=== PATIENT | female | born 1990 | race Caucasian/White ===

== ENCOUNTER 2025-02-17 17:30 | Emergency (ER) | payer OTHER, SELFPAY ==
[2025-02-17 17:31] VITALS: BP 104/83; PULSE 70; RESP 18; TEMP 35.9; O2SAT 100
--- NOTE | 2025-02-17 17:33 | ED_ITS ---
HPI - Nausea/Vomiting/Diarrhea General Chief complaint: Nausea/Vomiting/Diarrhea Stated complaint: not feeling well Time Seen by Provider: 02/17/25 17:33 Source: patient Mode of arrival: ambulatory Limitations: no limitations History of Present Illness HPI Narrative: 34-year-old female with a history of anxiety, status post cholecystectomy presents to the ED with a 2 day history of -- nausea with multiple episodes of vomiting and diarrhea. No abdominal pain. No fever. patient has had 10-15 episodes of vomiting and 4 episodes of diarrhea. -- hiccups -- tingling of tips of her fingers had cholecystectomy. No other abdominal surgeries. Normal vaginal deliveries. no other family members are sick. Patient has not eaten anything out of the ordinary. MD elicited complaint: nausea Onset (ago): day(s) ( 2 days) Description of vomiting: watery Description of diarrhea: watery Associated nausea: Yes Associated abdominal pain: No Location of pain: none Exacerbating factors: none Relieving factors: none Associated symptoms: denies other symptoms Related Data Allergies Allergy/AdvReac Type Severity Reaction Status Date / Time No Known Allergies Allergy Verified 02/17/25 17:34 Review of Systems 2 Review of Systems: All systems reviewed & are unremarkable except as noted in HPI and below Constitutional: Constitutional: Reports as per HPI, Reports no additional constitutional complaints and Reports weakness Eyes: Eyes: Reports as per HPI and Reports no additional eye complaints ENT: Reports system reviewed and no additional complaints, except as documented and Reports as per HPI Cardiovascular: Cardiovascular: Reports as per HPI and Reports no additional cardiovascular complaints Respiratory: Respiratory: Reports as per HPI and Reports no additional respiratory complaints Gastrointestinal: Gastrointestinal: Reports as per HPI, Reports no additional gastrointestinal complaints, Reports diarrhea, Reports nausea and Reports vomiting Genitourinary: Genitourinary: Reports no additional female genitourinary complaints Comments: decreased urine output Musculoskeletal: Musculoskeletal: Reports no additional musculoskeletal complaints and Reports as per HPI Integumentary/Breasts: Skin/Breast: Reports system reviewed and no additional complaints, except as docu and Reports as per HPI Neurologic: Reports system reviewed and no additional complaints, except as documented and Reports as per HPI Psychiatric: Psychiatric: Reports no additional psychiatric complaints and Reports as per HPI Endocrine: Endocrine: Reports no additional endocrine complaints and Reports as per HPI Hematologic/Lymphatic: Hematologic/Lymphatic: Reports no additional hematologic/lymphatic complaints and Reports as per HPI Allergic/Immunologic: Allergic/Immunologic: Reports no additional allergic/immunologic complaints and Reports as per HPI [facility] Past Medical History Medical History (Updated 02/17/25 @ 19:04 by Phani Gomez MD) Anxiety Exam 2 Narrative: Vitals are stable. Heart rate of 70. Afebrile. Const: General: no acute distress Orientation/consciousness: patient oriented x3 Limitations: no limitations HENMT: Head: normal to inspection Ears: external ears normal F khushboo/Nose/Sinus: Normal external nose present Face and sinus: normal facial exam Mouth: Yes Normal oral and palatal mucosa present Throat: posterior oropharynx normal Eyes: Conjunctivae: conjunctivae normal Cornea: corneas normal Pupils: E qual, round and reactive pupils present EOM: EOMs intact bilaterally D irect Ophthalmoscopy: no photophobia Neck: Neck: normal visual inspection and no lymphadenopathy Chest: Chest palpation & inspection: normal inspection of the chest Resp: Effort & Inspection: normal respiratory effort Auscultation: clear to auscultation bilaterally Cardio: Rate: regular rate Rhythm: regular rhythm GI: GI Palp: Yes Soft to palpation Auscultation: normal bowel sounds O ther: No tenderness/ rigidity /rebound : General: Yes no CVA tenderness Back/Spine/Pelvis: Back: no CVA tenderness Skin: General skin exam: normal color Rashes: no rashes Wounds: no wounds Neuro: General: patient oriented x3, moves all extremities, no meningeal signs and no focal motor deficits Speech: normal speech Extrem: General: normal to inspection and no clubbing, cyanosis or edema Psych: Mental Status: mental status grossly normal Affect: Anxious affect present Course Course Emergency Course: gastroenteritis--Patient had good response to Compazine. Blood work is unremarkable. Vital Signs Vital signs: Vital Signs Temperature 35.9 C L 02/17/25 17:31 Pulse Rate 70 02/17/25 17:31 Respiratory Rate 18 02/17/25 17:31 Blood Pressure 104/83 02/17/25 17:31 Pulse Oximetry 100 02/17/25 17:31 Oxygen Delivery Room Air 02/17/25 17:31 Temperature 36.1 C L 02/17/25 18:38 Pulse Rate 57 L 02/17/25 18:38 Respiratory Rate 18 02/17/25 18:38 Blood Pressure 108/65 02/17/25 18:38 Pulse Oximetry 98 02/17/25 18:38 Oxygen Delivery Room Air 02/17/25 18:38 MDM - Nausea/Vomiting/Diarrhea MDM Narrative Medical decision making narrative: Gastroenteritis Differential Diagnosis Differential diagnosis: Likely food poisoning Lab Data Attestation: I reviewed the patient's lab results. 02/17/25 18:24 02/17/25 18:24 Labs: Lab Results 02/17/25 Range/Units 18:24 WBC 8.0 (4.8-10.8) K/mm3 RBC 4.67 (4.20-5.40) M/mm3 Hgb 13.6 (12.0-15.0) g/dL Hct 39.7 (35.0-49.0) % MCV 85.0 (78.0-102.0) fL MCH 29.1 (27.0-31.0) pg MCHC 34.3 (32-36) g/dL RDW 12.1 (11.6-14.4) % Plt Count 324 (150-420) K/mm3 MPV 9.9 (9.2-11.8) fl Immature Gran % (Auto) 0.4 H (0.0-0.0) % Neut % (Auto) 81.1 H (50.0-70.0) % Lymph % (Auto) 15.0 L (18.0-42.0) % Becker % (Auto) 3.0 (2.0-11.0) % Eos % (Auto) 0.1 L (1.0-6.0) % Baso % (Auto) 0.4 (0.0-1.0) % Lymph # (Auto) 1.20 (1.10-4.50) K/mm3 Becker # (Auto) 0.24 (0.10-0.90) K/mm3 Eos # (Auto) 0.01 L (0.02-0.50) K/mm3 Baso # (Auto) 0.03 (0.00-0.10) K/mm3 Abs Immat Gran (auto) 0.03 H (0.00-0.00) K/mm3 Absolute Neuts (auto) 6.48 (1.70-7.20) K/mm3 Absolute Nucleated RBC 0.00 (0.00-0.00) K/mm3 Nucleated RBC % 0.0 (0-0.0) % Sodium 139 (136-145) mmol/L Potassium 4.3 (3.5-5.1) mmol/L Chloride 104 (98-108) mmol/L Carbon Dioxide 23 (21-32) mmol/L Anion Gap 12 (4-12) mmol/L BUN 14 (7-18) mg/dL Creatinine 0.74 (0.55-1.02) mg/dL Estim Creat Clear Calc 86 ml/min Estimated GFR > 60 (59 - ) Glucose 112 H (70-99) mg/dL Calculated Osmolality 289 (285-295) mOsm/kg Lactic Acid 1.8 (0.4-2.0) mmol/L Calcium 9.1 (8.5-10.1) mg/dL Total Bilirubin 0.9 (0.00-1.00) mg/dL AST 16 (15-37) U/L ALT 12 L (14-59) U/L Alkaline Phosphatase 74 (46-116) U/L Total Protein 7.7 (6.4-8.2) g/dL Albumin 4.2 (3.4-5.0) g/dL Lipase 25 (16-77) U/L Urine Color Light yellow (Yellow) Urine Appearance Clear (Clear) Urine pH 8.0 (5.0-8.0) Ur Specific Reserve 1.020 (1.010-1.020) Urine Protein Negative (Negative) Urine Glucose (UA) Negative (Negative) Urine Ketones 3+ H (Negative) Ur Blood (Man) Negative (Negative) Urine Nitrate Negative (Negative) Urine Bilirubin Negative (Negative) Urine Urobilinogen 0.2 (0.2-1.0) mg/dL Leukocyte Esterase Rfl Negative (Negative) ORALIA/UL Urine Test Negative Discharge Plan Discharge Clinical Impression: Gastroenteritis Patient Disposition: Home Condition: Stable Instructions: Antibiotic Form, Gastroenteritis (ED) Patient Language: Portuguese Prescriptions: New ondansetron HCl 4 mg tablet 4 mg PO Q8H PRN (Reason: nausea and vomiting) 4 Days Qty: 10 0RF Follow-up/Referrals: UNKNOWN,DOCTOR [Primary Care Provider] - Time of Disposition: 19:04
[2025-02-17] MEDS: LACTATED RINGERS 1,000 ML 999 ML IV CONT (17:52)
[2025-02-17] MEDS: PROCHLORPERAZINE EDISYLATE 10 MG/2 ML VIAL IV PUSH (17:52)
--- OUTSIDE RECORDS SUMMARY | 2025-02-17 17:58 | XMS_ITS | Continuity of Care Document ---
Author Name [facility] Organization [facility] Care Team Providers Care Drug Regulatory Affairs Specialist Name Role Phone [facility] Unavailable Unavailable Problems Combined list of problems from Department of Defense and Veterans Affairs facilities. It does not include entries that were removed or entered in error. Problem Status Onset Date Problem Type Date of Resolution Comments Source Anxiety Active 08/03/2024 Diagnosis [facility] Anxiety Active 08/01/2024 Diagnosis [facility] Major depression Active 08/01/2024 Diagnosis 00 [facility] Major depression Active 07/18/2024 Diagnosis 00 [facility] Anxiety Active 06/30/2024 Diagnosis [facility] Anxiety Active Condition [facility] Low back pain Active Condition [facility] Migraine with aura Active Condition [facility] Migraine with typical aura Active Condition [facility] Murmur Active Condition [facility] Tinea corporis Active Condition [facility] Immunizations Combined list of available immunizations from the Department of Defense and Veterans Affairs facilities. Immunization Series Date Given Administered By Site Reaction Lot Number CVX Code Drug Floorworker Status Comments Source tuberculin purified protein derivative 2022 CHARLIER IS Arm, left forea rm [id number] sanofi pasteur complet ed tuberculi n purified protein derivativ e 07/21/23 Given [facility] influenza, seasonal, injectable-pf 2013 CHARLIER IS 140 complet ed Result Comment: Unit: Unknown Manufactu rer: () [facility] tuberculin purified protein derivative 2013 zzLef t Arm [id number] sanofi pasteur complet ed Patient Tolerance : Negative Ambulat ory Pharmac y hepatitis B adult vaccine 2012 zzRig ht Arm [id number] [employer]oSmith[employer] ne complet ed hepatitis B adult vaccine 10/05/13 Given Ambulat ory Pharmac y hepatitis B adult vaccine 2012 zzLef t Arm [id number] 43 Gl[employer]oSmithK[employer] ne complet ed hepatitis B adult vaccine 05/03/13 Given Ambulat ory Pharmac y measles/mumps /rubella virus vaccine 2012 zzRig ht Arm [id number] [employer] complet ed measles/m umps/rube lla virus vaccine 05/03/13 Given Ambulat ory Pharmac y measles/mumps /rubella virus vaccine 2012 zzRig ht Thigh [id number] [employer] complet ed measles/m umps/rube lla virus vaccine 04/03/13 Given Ambulat ory Pharmac y hepatitis B adult vaccine 2012 zzLef t Arm [id number] 43 GlaxoSmithK[employer] ne complet ed hepatitis B adult vaccine 04/03/13 Given Ambulat ory Pharmac y tetanus, diphtheria, acellular pertu is 2012 zzLef t Arm [id number] 115 [employer] complet ed tetanus, diphtheri a, acellular pertussis 03/29/13 Given Ambulat ory Pharmac y tuberculin purified protein derivative 2012 zzLef t Arm [id number] [facility] complet ed Patient Tolerance : Negative Ambulat ory Pharmac y Results Combined list of recent chemistry, hematology and other laboratory results from Department of Defense and Veterans Affairs, ranging from 15 months to all on record, depending upon the facility. Order Name Results Value Reference Range Date Interpretation Specimen Comments Source Urinalysi s UA Protein Negative (03/08/24 8:05 AM) [facility] Leuk Esterase Negative (03/08/24 8:05 AM) 03[facility] Nitrite Negative (03/08/24 8:05 AM) 03[facility]A Urobilinog en 0.2 E.U./dL 03/08 [facility] Blood Negative (03/08/24 8:05 AM) 03/[address] [place] [address] Urinalysi s UA Spec [place] 1.015 *NA* (03/08/24 8:05 AM) 1.005 - 1.025 03/[address] [place] [address] Urinalysi s UA Ketones Negative (03/08/24 8:05 AM) 03/[address] [place] [address] Urinalysi s UA Bili Negative (03/08/24 8:05 AM) 03/[address] [place] [address] Urinalysi s UA pH 7.0 (03/08/24 8:05 AM) 5.0 - 7.5 03/[address] [place] [address] Urinalysi s UA Clarity Clear *NA* (03/08/24 8:05 AM) 03/[address] [place] [address] Urinalysi s UA Appear Clear *NA* (03/08/24 8:05 AM) 03/[address] [place] [address] Urinalysi s UA Color Yellow *NA* (03/08/24 8:05 AM) 03/[address] [place] [address] Urinalysi s UA Glucose Negative (03/08/24 8:05 AM) 03/[address] [place] [address] Urinalysi s UA Glucose Negative (01/10/24 2:10 PM) 01/[address] [place] [address] Urinalysi s UA Clarity Clear *NA* (01/10/24 2:10 PM) 01/[address] [place] [address] Urinalysi s UA Appear Clear *NA* (01/10/24 2:10 PM) 01/[address] [place] [address] Urinalysi s UA Color Yellow *NA* (01/10/24 2:10 PM) 01/[address] [place] [address] Urinalysi s UA Protein Negative (01/10/24 2:10 PM) 01/[address] [place] [address] Urinalysi s UA Nitrite Negative (01/10/24 2:10 PM) 01/[address] [place] [address] Urinalysi s UA Urobilinog en 0.2 E.U./dL 01/[address] [place] [address] Urinalysi s UA Leuk Esterase 1+ *ABN* (01/10/24 2:10 PM) 01/[address] [place] [address] Urinalysi s UA Ketones Negative (01/10/24 2:10 PM) 01/[address] [place] [address] Urinalysi s UA Bili Negative (01/10/24 2:10 PM) 01/[address] [place] [address] Urinalysi s UA Blood 1+ *ABN* (01/10/24 2:10 PM) 01/[address] [place] [address] Urinalysi s UA Spec [place] 1.010 *NA* (01/10/24 2:10 PM) 1.005 - 1.025 01/[address] [place] [address] Urinalysi s UA pH 7.0 (01/10/24 2:10 PM) 5.0 - 7.5 01/[address] [place] [address] Urinalysi s UA Epi Squam 0-1 (01/10/24 2:10 PM) 01/[address] [place] [address] Urinalysi s UA WBC 11-20 *ABN* (01/10/24 2:10 PM) 0 - 10 01/[address] [place] [address] Urinalysi s UA Bacteria Trace (01/10/24 2:10 PM) 01/[address] [place] [address] Urinalysi s UA RBC 0-2 (01/10/24 2:10 PM) 0 - 2 01/[address] [place] [address] Chemistry Beta hCG, Serum Qual Positive 7 ( 2 3:36 PM) 08/05 N Interpretiv e Data: If test is negative and is still suspected, a fresh serum specimen should be collected after 48 hours and tested. If test is equivocal, a fresh serum specimen should be collected in 48 to 72 hours or an alternate confirmatio n method should be used. [address] [place] [address] Chemistry Creatinine Level 0.75 mg/dL 0.55 - 1.02 07/23 N Interpretiv e Data: Creatinine- IFCC IDMS Standardize d Method. [address] [place] [address] Chemistry BUN 13 mg/dL 7 - 18 07/[address] [place] [address] Chemistry Alk Phos 67 U/L 46 - 116 07/23 N Interpretiv e Data: Interpretat ions: Alkaline Posphatase- IFCC Traceable Method. [address] [place] [address] Chemistry ALT 18 U/L 12 - 78 07/23 N Interpretiv e Data: Interpretat ions: Alanine Aminotransf erase-IFCC Traceable Method Sulfasalazi ne Interferenc e: Test result may be falseley depressed for patients on sulfasalazi ne. Specimen should be collected prior to sulfasalazi ne administrat ion. [address] [place] [address] Chemistry AST 16 U/L 15 - 37 07/23 N Interpretiv e Data: Interpretat ions: Sulfasalazi ne Interferenc e: Test result may be falseley depressed for patients on sulfasalazi ne. Specimen should be collected prior to sulfasalazi ne administrat ion. [address] [place] [address] Chemistry Bilirubin Total 0.5 mg/dL 0.6 - 1.0 07/23 L Interpretiv e Data: Eltrombopag Interferenc e: Use of this assay is not recommended for patients undergoing treatment with eltrombopag , due to the potential for falsely elevated results. [address] [place] [address] Chemistry Potassium Lvl 4.4 mmol/L 3.5 - 5.0 07/[address] [place] [address] Chemistry Sodium 140 mmol/L 135 - 145 07/[address] [place] [address] Chemistry Glucose Lvl 82 mg/dL 70 - 110 07/23 N Interpretiv e Data: Sulfasalazi ne/Sulfapyr idine Interferenc e: Test result may be falsely depressed for patients on sulfasalazi ne. Test result may be falsely elevated for patients on sulfapyridi ne. Specimen should be collected prior to sulfasalazi ne/sulfapyr idine administrat ion. [address] [place] [address] Chemistry BUN/Creat Ratio 17 10 - 07/[address] [place] [address] Chemistry AGAP 14 mmol/L 10 - 20 07/[address] [place] [address] Chemistry CO2 27.4 mmol/L 18.0 - 32.0 07/[address] [place] [address] Chemistry Chloride 103 mmol/L 98 - 108 07/[address] [place] [address] Chemistry Albumin 4.1 g/dL 3.4 - 5.0 07/[address] [place] [address] Chemistry Protein Total 7.7 g/dL 6.4 - 8.2 07/[address] [place] [address] Chemistry Calcium 9.5 mg/dL 8.4 - 10.9 07/[address] [place] [address] Chemistry eAvg Glucose.EP I 94 mg/dL 07/23 Result Comment: INTERPRETAT ION(S): A1c (%) mg/dL 5 97 (76-120) 6 126 (100-152) 7 154 (123-185) 8 183 (147-217) 9 212 (170-249) 10 240 (193-282) 11 269 (217-314) 12 298 (240-347) Data in parentheses are 95% Confidence Intervals (Diabetes Care Volume 31 Number 8, ADA) Panel performed by: Epidemiolog y Laboratory Service [facility] [id number] [place] [address], [place] [id number] [place] [address] Chemistry Hgb A1c.EPI 4.9 % 07/23 Result Comment: INTERPRETAT ION(S): Normal: 4.8% - 5.6% Prediabetes : 5.7% - 6.4% Diabetes: >= 6.5% Methodology : Capillary electrophor esis [address] [place] [address] Chemistry HDL Cholestero l 56.0 mg/dL 40.0 - 60.0 07/23 N Interpretiv e Data: Interpretat ions: Desired Level : 40-60 mg/dL At Risk for Heart Disease : <40 mg/dL Reference: National Cholesterol Education Program ([facility]) [address] [place] [address] Chemistry LDL 84 mg/dL 07/23 N Interpretiv e Data: Optimal : <100 mg/dL Near Optimal : 100-129 mg/dL Borderline High: 130-159 mg/dL High : 160-189 mg/dL Very High : >189 mg/dL Reference: National Cholesterol Education Program ([facility]) [address] [place] [address] Chemistry Cholestero l Total 156 mg/dL 07/23 N Interpretiv e Data: Interpretat ions: Desirable Level : <200 mg/dL Borderline High Level : 200-239 mg/dL High Level : >/=240 mg/dL Reference: National Cholesterol Education Program ([facility]) [address] [place] [address] Chemistry Triglyceri keith 81 mg/dL 07/23 N Interpretiv e Data: nterpretati ons: Normal : <150 mg/dL Borderline High : 150-199 mg/dL High : >/=200 mg/dL Reference: National Cholesterol Education Program (NCEP) *NOTE: In the presence of etamsylate at 2 mg/dL, falsely depressed result >10% for trigylcerid es may be observed. [address] [place] [address] Chemistry Chol/HDL 2.8 07/23 N Interpretiv e Data: Interpretat ions: Cholesterol /HDL ratio of LESS THAN 4.0 is recommended . [address] [place] [address] Chemistry eGFR CKD EPI 108 mL/min/1 .73_m2 07/23 Interpretiv e Data: Estimated Glomerular Filtration Rate (eGFR) calculated using the 2020 Chronic Kidney Disease-Epi demiology (CKD-EPI) Collaborati on creatinine equation; units of measure are mL/min/1.73 m2. Results are only valid for adults ( 18 years) whose serum creatinine is in steady state. eGFR calculation s are not valid for patients with acute kidney injury and for patients on dialysis. C reatinine-b ased estimates of kidney function may also be inaccurate in patients with reduced creatinine generation due to decreased muscle mass (e.g., malnutritio n, severe hypoalbumin emia, sarcopenia, chronic neuromuscul ar disease, amputations , severe heart failure or liver disease) and in patients with increased creatinine generation due to increased muscle mass (e.g., muscle builders, anabolic steroids) or increased dietary intake. As drug clearance is proportiona l to total GFR and not GFR indexed to body surface area (BSA), in individuals with a BSA substantial ly different than 1.73 m2, drug dosing should be based the reported eGFRvalue de-indexed from BSA by multiplying by the individual s BSA and dividing by 1.73. CKD is diagnosed based on abnormaliti es of kidney structure or function, present for >3 months, with implication s for health and disease. CKD is classified and staged based on cause, eGFR and albuminuria (quantified as urine albumin to creatinine ratio). An eGFR >60 mL/min/1.73 m2 in the absence of increased urine albumin excretion or structural abnormaliti es does not represent CKD.eGFR (mL/min/1.7 3 m2) CKD stage Interpretat ion 90 G1 Normal 60-89 G2 Mild decrease 45-59 G3A Mild to moderate decrease 30-44 G3B Moderate to severe decrease 15-29 G4 Severe decrease <15 G5 Kidney failure [address] [place] [address] Vital Signs Combined list of inpatient and outpatient Vital Signs from Department of Defense and Veterans Affairs, ranging from 12 months to all on record, depending upon the facility. Vital Sign Value Date Comments Source Systolic Blood Pressure 130 mm[Hg] 03/08/20 24 12:52:[address] [place] [address] Diastolic Blood Pressure 86 mm[Hg] 024 12:52:[address] [place] [address] Respiratory Rate 16 br/min 03/08/2024 12:52:[address] [place] [address] Mean Arterial Pressure, Calc 101 mm[Hg] 03/08/2024 12:52:[address] [place] [address] Peripheral Pulse Rate 91 bpm 03/08/2024 12:52:[address] [place] [address] Systolic Blood Pressure 119 mm[Hg] 07/28/20 23 16:19:[address] [place] [address] Diastolic Blood Pressure 79 mm[Hg] 023 16:19:[address] [place] [address] Mean Arterial Pressure, Calc 92 mm[Hg] 07/28/2023 16:19:[address] [place] [address] Blood Pressure Manual Automatic 07/28/2023 16:19:[address] [place] [address] Respiratory Rate 16 br/min 07/28/2023 16:19:[address] [place] [address] BP Site Right arm 07/28/2023 16:19:[address] [place] [address] Temperature Tympanic 36.3 Niyah 07/28/2023 16:19:[address] [place] [address] Peripheral Pulse Rate 74 bpm 07/28/2023 16:19:[address] [place] [address] Respiratory Rate 18 br/min 01/10/2024 17:56:[address] [place] [address] Peripheral Pulse Rate 85 bpm 01/10/2024 17:56:[address] [place] [address] BP Site Left arm 01/10/2024 17:56:[address] [place] [address] Mean Arterial Pressure, Calc 97 mm[Hg] 01/10/2024 17:56:[address] [place] [address] Systolic Blood Pressure 118 mm[Hg] 01/10/20 24 17:56:[address] [place] [address] Diastolic Blood Pressure 86 mm[Hg] 024 17:56:[address] [place] [address] Blood Pressure Manual Automatic 01/10/2024 17:56:[address] [place] [address] Peripheral Pulse Rate 87 bpm 08/05/2022 20:03:[address] [place] [address] Mean Arterial Pressure, Calc 88 mm[Hg] 08/05/2022 20:03:[address] [place] [address] Systolic Blood Pressure 116 mm[Hg] 08/05/20 22 20:03:[address] [place] [address] Diastolic Blood Pressure 74 mm[Hg] 022 20:03:[address] [place] [address] Blood Pressure Manual Automatic 08/05/2022 20:03:[address] [place] [address] Respiratory Rate 16 br/min 08/05/2022 20:03:[address] [place] [address] Mean Arterial Pressure, Calc 81 mm[Hg] 05/28/2023 18:01:[address] [place] [address] Systolic Blood Pressure 100 mm[Hg] 05/28/20 23 18:01:[address] [place] [address] Diastolic Blood Pressure 72 mm[Hg] 023 18:01:[address] [place] [address] Respiratory Rate 20 br/min 05/28/2023 18:01:[address] [place] [address] Peripheral Pulse Rate 81 bpm 05/28/2023 18:01:[address] [place] [address] Encounters Combined list of: 1) Encounters from [facility] facilities going backup to the last 18 months, not all [place] inpatient encounters are included; 2) Encounters from the [facility] facilities going backup to 280 months. Location Location Details Encounter Type Encounter Number Reason For Visit Attending Provider ADM Date DC Date Status Disposition Source [address] [place] [address] Between Visit [id number] Anxiety disorde r, unspeci fied 06/30 Discharge Disposition: Home or Self Care [address] [place] [address] Between Visit [id number] Major depress catracho disorde r, single episode , unspeci fied 07/17 Discharge Disposition: Home or Self Care [address] [place] [address] Between Visit [id number] 07/28 Discharge Disposition: Home or Self Care [address] [place] [address] [id number] Anxiety disorde r, unspeci fiedJakob depress catracho disorde r, single episode , unspeci fied ROGERS CHIANG 08/01 Discharge Disposition: Home or Self Care [address] [place] [address] Between Visit [id number] Anxiety disorde r, unspeci fied 08/01 Discharge Disposition: Home or Self Care [address] [place] [address] Procedures Combined list of: 1) Procedures from [facility] facilities going back up to thelast 18 months, not all [place] non-surgical procedures are included; 2) All procedures from the [facility] facilities. Procedure Procedure Type Code Date Perfomer Comments Sourc e D&C 09/17/[address] [place] [address] [place] [address] [facility]bl[facility]2012 [facility] Social History Combined list of available smoking, tobacco, and other social history from [facility] of Defense and Veterans Affairs facilities. Social History Type Response Date Comment Sour ed Tobacco Exposure to Secondha nd Smoke: No. Never-cigarette user Cigarette use:. Never-other tobacco user (not cigarettes) Other Tobacco use:. Ambulatory Pharmacy Sexual Orientation Ambula tory Pharmacy Gender identity Ambulator y Pharmacy Sex Representation Female (finding) Unknown Organization Assessment and Plan Combined list of future care activities from Department of Defense and Veterans Affairs facilities (e.g., assessment and plan notes, appointments, orders, and referrals). Additional future care activities may be listed in the Plan of Care section. Result Assessment and Plan Date Source Assessment and Plan Extracted from:Title : CSSP Author: TRAVIS SHORT LPN Date: 03/08/24 [facility] Current Visit No Results Found Extracted from:Title: Depression/Anxiety F/U - [facility] Author: TOD CORTES PA-C Date: 02/04/24 Major depression 33 y/o F for f/u on depression/anxiety. Pt was seen recently and had her sertraline increased from 50mg per day to 75mg per day. Pt has also started seeing the licensed clinical hospice social worker i n the medical group where she learned coping skills. Pt has also been followed by the behavioral healthcare loom cleaner. Pt reports that the increased dosage and coping skills have greatly increased her quality of life and decreased her sx. PHQ-9 at her last appt was 19 and she is now at a 3. KAMLESH-7 at previous appt was 9 and today it was 4. Pt reports she is now able to laugh and enjoy life when before it was difficult to do so. Pt i s now eating a healthy diet and has been able to lose weight and exercise. P t would like to remain on her current dosage of her medication. Pt does report some mild headaches with the bupropion but would like to remain on this dosage to see if they will subside in time. Pt denies any SI/HI. -Continue sertraline 75mg -Continue Wellbutrin 150mg once per day --If headaches continue will consider decreasing dosage to tolerable levels ---If sx are then uncontrolled will consider switching from sertraline/wellbutrin to Lexapro. -Follow up in 3 months --If stable will consider 6 month follows up Ordered: sertraline(sertraline 25 mg oral tablet), 1 tab(s), Oral, Daily, # 90 tab(s), 0 total refill(s), Maintenance, 1 tab(s) Oral Daily, Pharmacy: [facility] [Last filled 02/04/24] sertraline(sertraline 50 mg oral tablet), 1 tab(s), Oral, Daily, # 90 tab(s), 0 total refill(s), Maintenance, 1 tab(s) Oral Daily, Pharmacy: [facility] [Last filled 02/04/24] TOD CORTES, [address], U ANITA LAMAR [address] [facility] REENA Ozuna Extracted from:Title: Depression/UTI - [facility] Author: TOD CORTES PA-C Date: 01/10/24 1. Consuelo diaz depression Patient presents today requesting m edication changes f or her sertraline t hat she takes for depression and anxiety. PHQ 9 today is 19 a nd C marcecaryn sunshine is a 1, she was negative for the high risk questions. P atient states s he is been taking this s ertraline a t 50 mg w ith good r elief of symptoms b ut w ould like it increased.? Patient states o ccasionally at night s he will have fleeting thoughts t hat s he w ould be b rad off . Patient states t hat she will go to sleep a nd t he symptoms would be gone by time she woke up. P atient denies having a plan o r any intention to follow through o n t hose fleeting thoughts. A safety plan was discussed with the patient. Patient denies any h omicidal ideation. P atient reports h aving i rritability f rom the sertraline f or which she takes bupropion w ith g ood relief of symptoms b ut would like it increased. Patient denies any side effects from bupropion. P atient given option o f switching f rom sertraline and bupropion t o Lexapro.? Patient elected to continue with the sertraline and bupropion. I ncrease sertraline from 50 mg once a day to 75 mg o nce a day T o determine t he increased dose of s ertraline's effectiveness w ill h old off on increasing bupropion a t this time. F ollow-up in 2 weeks, i f d epression symptoms are well controlled a nd side effects a re still present f rom the sertraline w ill consider i ncreasing W ellbutrin. S afety plan discussed with patient, n o current S I/HI. Patient denies h aving any plan o r intent t o harm her self or others. P atient a menable t o c ontact from behavioral health care loom cleaner, and a ppointment w ith s ocial worker. E R precautions given Ordered: sertraline(sertraline 25 mg oral tablet), 1 tab(s), Oral, Daily, # 30 tab(s), 0 total refill(s), Maintenance, 1 tab(s) Oral Daily, Pharmacy: [facility] [Last filled 01/10/24] sertraline(sertraline 50 mg oral tablet), 1 tab(s), Oral, Daily, # 30 tab(s), 0 total refill(s), Maintenance, 1 tab(s) Oral Daily, Pharmacy: [facility] [Last filled 01/10/24] 2. U rinary frequency Patient with i ncreased u rinary frequency, burning with urination, a nd foul-smelling urine. Patient denies a ny back pain, constitutional sx o r hematuria. Patient reports this feels like h er previous UTIs. E mpiric t reatment started f or u rinary tract infection U rinalysis o rdered, w ill contact patient i f i nfection is not susceptible to the antibiotic prescribed o r i f it d id not show any infection. Ordered: nitrofurantoin(nitrofurantoin macrocrystals-monohydrate 100 mg oral capsule), 1 cap(s), Oral, BID, X 5 days, # 10 cap(s), 0 total refill(s), Acute, 01/15/2024, 1 cap(s) Oral BID,x5 days, Pharmacy: [facility] [Last filled 01/10/24] UA Dipstick 3. A nxiety See above f or H PI/plan a nd f or current symptoms. Kamlesh 7 today was a 9,?states symptoms a re the same a s t hey typically are f eels they are well controlled. Patient denies any increase in anxiety a fter starting Wellbutrin. S ertraline increased today f rom 50 to 75 mg. F ollow-up in 2 weeks Orders: Urinalysis Microscopic Urine Culture, Routine LC [place] [id number] TOD CORTES, [employer], PA-C [address] [place], [place] This note was dictated, but not proofread, using voice recognition software Extracted from:Title: Anxiety med f/u - BRICEB Author: VILLA LOCKETT PA Date: 09/24/23 1. A nxiety Pt doing very well with meds, well controlled with SSRI + Wellbutrin. Will continue at current dose for 3mos will f/u virtually then for refills a nd to see if Meds are still efficacious. Pt can f/u sooner as needed Orders: buPROPion(buPROPion 150 mg/12 hours (SR) oral tablet, extended release), 1 tab(s), Oral, Daily, # 30 tab(s), 2 total refill(s), Maintenance, 1 tab(s) Oral Daily, Pharmacy: [facility] [Not filled] sertraline(sertraline 50 mg oral tablet), 1 tab(s), Oral, Daily, for anxiety, # 30 tab(s), 2 total refill(s), Maintenance, 1 tab(s) Oral Daily,Instr:for anxiety, Pharmacy: [facility] [Not filled] 1Lt MARY FloresC Physician Education And Outreach Coordinator [facility], [address] [place] [address] [place], [place] Extracted from:Title: Anxiety med f/u - BRICEB Author: VILLA LOCKETT PA Date: 09/01/23 1. A nxiety Will refill Sertraline and a dd Wellbutrin as adjunct and follow-up in 1 mo to reassess. Pt denies SI/HI today. Holding off on prescribing Imitrex since I discussed with patient I would only like to adjust one medication at a time that could interact with her sertraline. If we are stable and she is happy with the meds she is on at her follow-up will consider adding Imitrex. - PUVA Orders: buPROPion(buPROPion 75 mg oral tablet), See Instructions, Oral, take one tablet by mouth every day for 7 days, then take one tablet twice a day, # 53 tab(s), 0 total refill(s), Maintenance, 30 days, take one tablet by mouth every day for 7 days, then take one tablet twice a day, Pharmacy: [facility] sertraline(sertraline 50 mg oral tablet), 1 tab(s), Oral, Daily, # 30 tab(s), 0 total refill(s), Maintenance, 1 tab(s) Oral Daily, [id number] [External Rx] 1Lt Villa Lockett PA-C Physician Education And Outreach Coordinator [facility], [facility] [place] Extracted from:Title: Office Clinic Note Author: VILLA LOCKETT PA Date: 07/28/23 1. A nxiety Discussed symptoms w/ pt and she noted some improvement w/ her anxiety but she still doesn't feel like she is at where she wants to be, she is currently seeing the [facility] for counselling and thinks that some of her mood swings and manic episodes are normal for her as she has had them for a long time. Discussed/decided upon increasing Sertraline to 50mg and following up in 1 month to assess medication increase efficacy. No desire to harms elf, baby or others. - PUVA Orders: sertraline(sertraline 50 mg oral tablet), 1 tab(s), Oral, Daily, # 30 tab(s), 0 total refill(s), Maintenance, 1 tab(s) Oral Daily, Pharmacy: [facility] [Not filled] 1Lt Villa Lockett PA-C Physician Education And Outreach Coordinator [facility], [facility] [place] Extracted from:Title: Hznk-Jyvokcx-BDU Author: JAUN COX PA Date: 06/23/23 1. A nxiety 32 y /o F with many year hx of anxiety worsening post-. N o safety concerns, no psychosis. I nterested in starting new medication. Currently on 30mg Fluoxetine. Denies SI/HI/self-harm. H ere today to seek further treatment. Plan: - Encouraged to s tart therapy, improvement will likely come from a combination of counseling and medication - Encouraged daily exercise - Discontinue Fluoxetine-decrease to 20mg x3-7 days then 10mgx 3-7days as tolerated then start zoloft - Start Sertraline 25mg x1-2 weeks then increase to 50mg as tolerated. --Reviewed R/B/I. R eviewed p ossible side effect to include worsening of depression/anxiety, insomnia, fatigue, dizziness, nausea, diarrhea, x erostomia. - Pt to stop medication if worsening SI/HI, otherwise understand that it takes ~12 weeks for hormone levels in the brain to stabilize. - Pt to call in 2 weeks if he experiences intolerance of medication or if he develops any concerning changes in his mood or symptoms - F/u in 2-4 weeks - Go to the ER for SI / HI especially if plan is present. - Pt verbalized understanding and agrees with plan. Orders: sertraline(sertraline 25 mg oral tablet), 1 tab(s), Oral, Daily, for anxiety/depression Start AFTER titrating off Prozac, # 30 tab(s), 0 total refill(s), Maintenance, 1 tab(s) Oral Daily,Instr:for anxiety/depression; Start AFTER titrating off Prozac, Pharmacy: [facility] [Not filled] 1st Lt Jaun Cox PA-C [facility], [address] [place], [address] Phone. [phone] Gucci ISCLAIMER: T his note was generated with hrupn-gx-apdp software: Gu[employer] Acosta embedded in [facility] EMR. There may be bhaxnkbf-mm-evly errors in this note that were not noted during the review process by the dictating provider. Patricia gee contact my office for clarifications. Extracted from:Title: Skin nodule/derm-BLD Author: JAUN COX PA Date: 05/28/23 1. S kin nodule 32 y/o F w/ >2 year hx of nodule on left shoulder increasing in size over the past few months. No over lying skin changes DDx: Dermatofibroma vs scar tissue vs other. -Referral placed to dermatology as requested -Pt verified understanding and agreement with plan Ordered: Referral Request 2.0 [address] Jaun Cox PA-C [facility], [address], [address] [place], [address] Phone. [phone] D ISCLAIMER: T his note was generated with rvxpd-iu-ykvs software: Gucci Acosta embedded in [facility] EMR. There may be swrvvuzt-vg-skou errors in this note that were not noted during the review process by the dictating provider. Patricia gee contact my office for clarifications. Extracted from:Title: Routine Well - tmn Author: SABINO RIVAS PA-C Date: 08/05/22 1. W kennedy adult monitoring status Paperwork completed and mailed to the state board as noted above. Congratulated patient on remaining drug-free for the past 4.5 years. HCG ordered - will notify patient of results once reviewed and discuss plan of care based on those results. She was provided with information on how to access the patient portal to review lab results and for better communication with PCM. 2. A nxiety M edication effective without side effect. Continue medication as prescribed and F/U annually.? Patient denies SI or HI but is aware of available resources should these symptoms develop.? Ordered: FLUoxetine(PROzac 20 mg oral capsule), 1 cap(s), Oral, Daily, for anxiety, # 90 cap(s), 3 total refill(s), Maintenance, Pharmacy: [facility] [Not filled] Orders: Beta HCG Qualitative, Serum 02/17/2025 [facility] Functional Status Combined list of recent functional and cognitive assessments recorded at [employer] (VA).VA Functional Slayden Measurement (FIM) Scale: 1 = Total Assistance (Subject = 0% +), 2 = Maximal Assistance (Subject = 25% +), 3 = Moderate Assistance (Subject = 50% +), 4 = Minimal Assistance (Subject = 75% +), 5 = Supervision, 6 = Modified Slayden (Device), 7 = Complete Slayden (Timely, Safely). Assessment Date/Time Source Assessment Type Assessment Skill Assessment Score Assessment Details No data available for this section
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
--- OUTSIDE RECORDS SUMMARY | 2025-02-17 17:58 | XMS_ITS | Continuity of Care Document ---
Author Organization [facility]. If a dditional information is needed, contact Health Information Management at [phone] Address [address] [phone] Phone Care Team Providers Care Staff Radiologist Name Role Phone Unavailable Unavailable Unavailable Unavailable Unavailable Unavailable Unavailable Unavailable Unavailable Unavailable Unavailable Unavailable Unavailable Unavailable Unavailable Encounters Ambulatory 25-May-2023 09:34 Adrian Lyons (Attending) [facility] 17-May-2023 11:51 SHANEL ROGERS (Attending) [facility] 05-May-2023 13:03 ZZPROVIDER UNIDENTIFIED (Attending) [facility] 24-Mar-2023 11:19 ZZPROVIDER UNIDENTIFIED (Attending) [facility] 08-Mar-2023 12:22 SHANEL ROGERS (Attending) [facility] 19-Jan-2023 14:10 ZZPROVIDER UNIDENTIFIED (Attending) [facility] 11-Jan-2023 10:29 SHANEL ROGERS (Attending) [facility] 01-Jan-2023 13:23 DAVY Geiger (Attending) [facility] 14-Dec-2022 13:08 ZZPROVIDER UNIDENTIFIED (Attending) [facility] 25-Nov-2022 15:26 DAVY Geiger (Attending) [facility] 16-Nov-2022 08:25 ZZPROVIDER UNIDENTIFIED (Attending) [facility] 04-Nov-2022 13:27 ZZPROVIDER UNIDENTIFIED (Attending) [facility] 20-Oct-2022 10:58 SHANEL ROGERS (Attending) [facility] 28-Sep-2022 14:06 ZZPROVIDER UNIDENTIFIED (Attending) [facility] 01-Sep-2022 15:15 SHANEL ROGERS (Attending) [facility] 17-Aug-2022 15:20 SHANEL ROGERS (Attending) [facility] 29-Jul-2022 15:31 ZZPROVIDER UNIDENTIFIED (Attending) [facility] 25-May-2022 10:35 ZZPROVIDER UNIDENTIFIED (Attending) [facility] 18-May-2022 12:49 MASOUD Lyons (Attending) [facility]
[2025-02-17 18:28] LABS: Basophils Absolute Auto 0.03 K/mm3 (0.00-0.10); Basophils Percent Auto 0.4 % (0.0-1.0); Eosinophils Absolute Auto 0.01 K/mm3 (0.02-0.50); Eosinophils Percent Auto 0.1 % (1.0-6.0); Hematocrit 39.7 % (35.0-49.0); Hemoglobin 13.6 g/dL (12.0-15.0); Immature Granulocyte Absolute 0.03 K/mm3 (0.00-0.00); Immature Granulocyte Percent A 0.4 % (0.0-0.0); Mean Corpuscular HGB Conc 34.3 g/dL (32-36); Mean Corpuscular Hemoglobin 29.1 pg (27.0-31.0); Mean Platelet Volume 9.9 fl (9.2-11.8); Monocytes Absolute Auto 0.24 K/mm3 (0.10-0.90); Neutrophils Absolute Auto 6.48 K/mm3 (1.70-7.20); Neutrophils Percent Auto 81.1 % (50.0-70.0); Platelet Count Result 324 K/mm3 (150-420); Red Blood Count 4.67 M/mm3 (4.20-5.40); Red Cell Distribution Width 12.1 % (11.6-14.4)
[2025-02-17 18:33] LABS: Add Urine Microscopic? NO; Appearance Urine Clear (Clear); Bilirubin Urine Negative (Negative); Blood Urine Negative (Negative); Color Urine Light Yellow (Yellow); Glucose Urine UA Negative (Negative); Ketones Urine 3+ (Negative); Leukocyte Esterase Ur Negative LEU/UL (Negative); Nitrate Urine Negative (Negative); Pregnancy On Board Control Positive; Protein Urine Negative (Negative); Urine Pregnancy Test Negative; Urobilinogen Urine 0.2 mg/dL (0.2-1.0)
[2025-02-17 18:38] VITALS: BP 108/65; PULSE 57; RESP 18; TEMP 36.1; O2SAT 98
[2025-02-17 18:47] LABS: Alanine Aminotransferase 12 U/L (14-59); Albumin Level 4.2 g/dL (3.4-5.0); Alkaline Phosphatase 74 U/L (46-116); Anion Gap 12 mmol/L (4-12); Aspartate Amino Transferase 16 U/L (15-37); Bilirubin,Total 0.9 mg/dL (0.00-1.00); Blood Urea Nitrogen 14 mg/dL (7-18); Calcium 9.1 mg/dL (8.5-10.1); Carbon Dioxide 23 mmol/L (21-32); Chloride 104 mmol/L (98-108); Estimated CRCL calculation 86 ml/min; Estimated Glomerular Filt Rate > 60; Glucose 112 mg/dL (70-99); Lipase 25 U/L (16-77); Osmolality Calculated 289 mOsm/kg (285-295); Potassium 4.3 mmol/L (3.5-5.1); Sodium 139 mmol/L (136-145); Total Protein 7.7 g/dL (6.4-8.2)
[2025-02-17 18:52] LABS: Lactic Acid Reflex 1.8 mmol/L (0.4-2.0)
== END 2025-02-17 19:12 | disposition home or self-care (01) ==
PROVIDERS: Emergency Provider Internal Medicine Critical Care Medicine
DX: K52.9 Noninfective gastroenteritis and colitis, unspecified (principal); Z90.49 Acquired absence of other specified parts of digestive tract
CPT/HCPCS: 36415; 80053; 81003; 81025; 83605; 83690; 85025; 96361; 96374; 99284; J0780; J7120